=== PATIENT | female | born 1955 | race Caucasian/White ===

== ENCOUNTER → 2025-02-17 14:23 | Outpatient (BNVA) | payer SELFPAY | PROVIDERS: PCP Chiropractor; Visit Provider Internal Medicine | DX: R07.9 Chest pain, unspecified (principal) | CPT/HCPCS: 93005 ==

== ENCOUNTER 2025-03-19 07:49 | Outpatient (CLI) | payer SELFPAY ==
[2025-03-19 08:16] VITALS: BMI 25.4
--- NOTE | 2025-03-19 08:18 | ECG_ITS ---
M-Audio Test Date: 2025-03-19 Pat Name: Frida Bright Department: Room: Gender: Female [employer]er: : 1955 Requested By: Richard Benitez Order Number: [id number] Reading MD: RONDA ROMO Interpretive Statements Lung unchanged pre/post procedure; Intraprocedure shortess of breath; Symptoms resoled by discharge EXERCISE DATA: The patient was exercised by Martinez protocol. Baseline heart rate was 48 beats per minute. Baseline blood pressure was 135/80 millimeters of mercury. Target heart rate was 152 beats per minute. Maximum heart rate achieved was 137, which was 90% of the target heart rate. Maximum blood pressure was 202/92 millimeters of mercury. Total exercise time was 6 minutes. Maximum METs achieved was 7 (, maximum VO2 was 24 . The reason for ending the test was maximum effort achieved. The patient complained of shortness of breath during the stress test, which then resolved at the end of the test. ELECTROCARDIOGRAM: BASELINE: Showed sinus bradycardia, normal axis, mild inferolateral ST depression noted EXERCISE: At the peak exercise level, there appeared to be mild ST-T changes in the inferolateral segment was noted RECOVERY: During the recovery period, heart rate dropped appropriately. No significant ST-T changes in the recovery suggestive of ischemia noted. CONCLUSION: 1. Exercise capacity low 2. Heart rate response was appropriate. 3. Blood pressure response was appropriate. 4. Symptoms not suggestive of ischemia. 5. Electrocardiogram portion of the stress test was equivocal for ischemia. 6. Nuclear scan will be documented separately. Electronically Signed On 04-10-2025 15:56:01 CDT by RONDA ROMO [email or web address]
--- NOTE | 2025-03-19 08:19 | NMCV_ITS ---
NM selina perf SPECT r/s* [id number] Frida Bright Age: 69 Gender: F : 1955 Exam Date: 03/19/2025 08:54 Ordering Phys: Richard Benitez M.D ([email or web address]) Technologist: RAZIA Callejas Exam Location: [facility] Indications: cp STRESS TEST Please see separate stress test report in [facility] for full findings IMAGE PROTOCOL Rest/Stress 1 Exercise Day Radiopharmaceutical Dose (mCi) Administration Site Administered by Rest: Tc-99m 10.9 IV RAZIA Callejas Sestamibi Stress:Tc-99m 32.7 IV Kenyetta Richards, RAZIA Sestamibi Rest: 19-Mar-2025 60 Discovery 630 Stress: 19-Mar-2025 15 Discovery 630 Radiopharmaceutical was injected at 86 % maximum heart rate. Images obtained in supine and prone position. SPECT RESULTS Technical Quality: Good Raw Data Analysis: Normal Image Corrections: No attenuation or motion correction applied Summed Stress Score: 0 Summed Rest Score: 0 Summed Difference Score: 0 PERFUSION FINDINGS SPECT images demonstrate homogeneous tracer distribution throughout the myocardium. FUNCTIONAL RESULTS (calculated via Gated SPECT) Stress Image LV EF (%): 71 Stress EDV (mL):82 TID: 0.83 Stress ESV (mL):24 FUNCTIONAL FINDINGS: There is normal left ventricular systolic function. IMPRESSIONS Myocardial perfusion imaging is normal. Elizabeth Lovelace MD (Electronically Signed) Final Date: 26 March 2025 19:20 S
[2025-03-19 09:40] VITALS: BP 156/75; PULSE 67
--- NOTE | 2025-03-19 13:30 | USCV_ITS ---
Frida Bright Age: 69 Gender: F : 1955 Exam Date: 03/19/2025 10:26 Ordering Phys: Richard Benitez M.D ([email or web address]) Technologist: PETE [place] [facility] [place]ication: SoB BP: 144 / 64 HR: 45 Rhythm: Sinus Technical Quality: Adequate MEASUREMENTS (Male / Female) Normal Values 2D ECHO LV Diastolic Diameter PLAX 4.4 cm 4.2 - 5.9 / 3.9 - 5.3 cm IVS Diastolic Thickness 0.9 cm 0.6 - 1.0 / 0.6 - 0.9 cm IVS Systolic Thickness 1.9 cm LVPW Diastolic Thickness 1.3 cm 0.6 - 1.0 / 0.6 - 0.9 cm LVPW Systolic Thickness 1.5 cm LVOT Diameter 2.0 cm LV Ejection Fraction 2D Teich 57.1 % LV Ejection Fraction MOD 4C 50.9 % LV Ejection Fraction MOD 2C 67.6 % LV Ejection Fraction 2C AL 67.8 % LA Diameter 2.3 cm RA Systolic Volume 4C AL 56.1 ml RA Systolic Volume 4C MOD 51.7 ml LA Sys Volume AL 43.4 cm cubed LA Sys Volume Index AL 27.0 cm cubed/m squared Aorta at Sinotubular Diameter 2.2 cm M-MODE LA Ao Ratio MM 1.5 AV Cusp Separation MM 1.6 cm DOPPLER AV Peak Velocity 112.0 cm/s LVOT Peak Velocity 87.0 cm/s AV Area Cont Eq vti 2.7 cm squared AV Area Cont Eq pk 2.4 cm squared MV Peak Velocity 85.0 cm/s MV Area PHT 3.4 cm squared Mitral E to A Ratio 1.0 TV Peak Velocity 158.0 cm/s TR Peak Velocity 221.0 cm/s TR Peak Gradient 19.5 mmHg TV Peak E Velocity 66.0 cm/s PV Peak Velocity 104.0 cm/s FINDINGS Left Ventricle Normal left ventricular size, systolic function and wall thickness, with no regional wall motion abnormalities. Left ventricular ejection fraction is estimated at 60 %. Grade I/IV diastolic dysfunction (abnormal relaxation filling pattern), normal to mildly elevated filling pressures. Right Ventricle The right ventricle is normal in size and function. Right Atrium The right atrium is normal in size. Left Atrium The left atrium is normal in size. Mitral Valve Thickened mitral valve. No mitral valve stenosis. Trace mitral valve regurgitation. Aortic Valve Structurally normal aortic valve without significant sclerosis or stenosis. There is no aortic regurgitation. Tricuspid Valve Structurally normal tricuspid valve without significant stenosis or regurgitation. Pulmonary artery systolic pressure is normal. Pulmonic Valve Structurally normal pulmonic valve without significant stenosis. There is no pulmonic regurgitation. Pericardium Normal pericardium without effusion. Aorta Normal ascending aorta dimension. IVC The inferior vena cava appears normal. CONCLUSIONS Normal left ventricular size, systolic function and wall thickness, with no regional wall motion abnormalities. Left ventricular ejection fraction is estimated at 60 %. Grade I/IV diastolic dysfunction (abnormal relaxation filling pattern), normal to mildly elevated filling pressures. There is no pericardial effusion. No significant valve abnormalities. Right atrial pressure is around 5 mm of mercury. Elizabeth Lovelace MD (Electronically Signed) Final Date: 25 March 2025 15:10 S
== END 2025-03-19 07:50 | disposition home or self-care (01) ==
LOC: CDL 07:52
PROVIDERS: PCP Chiropractor; Visit Provider Internal Medicine
DX: R07.9 Chest pain, unspecified (principal); R06.02 Shortness of breath; R93.1 Abnormal findings on diagnostic imaging of heart and coronary circulation; I05.9 Rheumatic mitral valve disease, unspecified
CPT/HCPCS: 36415; 78452; 93017; 93306; A9500